=== PATIENT | male | born 1975 | race Caucasian/White ===

== ENCOUNTER 2017-03-01 13:55 | Emergency (ER) | payer MEDICAID, SELFPAY ==
[2017-03-01 14:16] VITALS: BP 145/97; PULSE 85; RESP 18; TEMP 36.6; O2SAT 96; BMI 21.7
--- NOTE | 2017-03-01 14:17 | PC.NURSE ---
pt requested to be seen in [facility] for slurred speech. When came back, I immediately went to room. Has family with him. Asked what brought them in. patient not speaking. Family reporting slurred speech and concerned for either a stroke or dehydration. States here to rule out stroke and have blood work. Explained [facility] and that stroke patients are typically seen in ER but that I was happy to see him and evaluate him but if concerns for stroke, ER is where I would send him. They left saying they were going to ER instead of waiting to be evaluated first here. Got up and walked out before I could even call report or assist w/ transfer to ER. Margo, [employer] was immediately notified as well as registration.
--- NOTE | 2017-03-01 14:41 | CT_ITS ---
CT HEAD/BRAIN WO CON Ordering Physician: Linda Breaux Patient Age: 41 years: Male HISTORY: ITS.REASON: SLURRED SPEECHweakness right side symptoms since since Wednesday TECHNIQUE: Routine Axial CT scanning through the head CT. Brain and bone windows performed and submitted to PACS. COMPARISON : None available FINDINGS No hemorrhage. No mass. No territorial infarct. No subdural collection. There is a 10 mm x 5 mm low-density area at the superior left basal ganglia left putamen . Fairly low-density and thus may be an older lucunar infarct.. Just superior to this is a vague low density at the damian radiata white matter tracts leading superiorly just lateral to the body of left lateral ventricle. These areas can reflect recent ischemia or involving infarct. (Axial image 25, 26, 27). Clinical correlation required. MR suggested to further evaluatepreferably with and without contrast particularly in view of history The ventricles appear normal. Posterior fossa is normal. CP angles clear. IACs unremarkable. Mastoid air cells are well-developed and clear. Middle ear clear. A mild mucosal thickening is seen at the ethmoid air cells bilaterally with trace mucosal thickening sphenoid sinus and top of maxillary sinuses. Critical result called to ER physician Dr. Muir on 03/01/2017 2;58 PM. IMPRESSION 1. More likely older lacunar infarct left basal ganglia/ at left putamen(10X 5 mm on axial slice 24) 2. However just superior to the left basal ganglia there is additional vague Low density extending to the damian radiata white matter tracts. Nonspecific but Could reflect a a recent or acute infarct.. 3. Warrants MR with & without contrast to further evaluate 4. No hemorrhage evident
[2017-03-01 14:46] LABS: Basophils % 0.3 % (0.1-2.0); Eosinophils # 0.2 K/mm3 (0.0-0.4); Eosinophils % 3.4 % (0.1-12.0); Hematocrit 46.4 % (42.0-52.0); Hemoglobin 15.6 g/dL (14.1-18.0); Lymphocytes # 1.4 K/mm3 (0.7-4.5); Lymphocytes % 20.3 K/mm3 (10-50); Mean Corpuscular HGB Conc 33.7 g/dL (31.8-35.4); Mean Corpuscular Hemoglobin 29.9 pg (27.0-31.2); Mean Corpuscular Volume 88.7 fl (80-94); Mean Platelet Volume 7.5 fl (7.4-10.4); Monocytes # 0.5 K/mm3 (0.1-1.0); Monocytes % 6.5 % (1.7-9.3); Neutrophils # 4.8 K/mm3 (1.8-7.8); Neutrophils % 69.5 % (37.0-80.0); Platelet Count 297 K/mm3 (142-424); Red Blood Count 5.23 M/mm3 (4.60-6.20); Red Cell Distribution Width 12.3 % (11.5-17.5); White Blood Count 6.9 K/mm3 (4.8-10.8)
--- NOTE | 2017-03-01 14:52 | HMH.EDGENADL ---
ED Disposition Clinical Impression: Ischemic stroke without coma Disposition: Xfer Critical Access Hosp Condition on Discharge: Fair Additional Instructions: Pt informed of the findings on his CT scan and discussion with stroke team at ....[facility] and [facility] evaluation Time of Disposition: 15:15 - Critical Care Critical Care Time: Yes Attestation: On 03/01/17, the high probability of a clinically significant, sudden or life threatening deterioration of the following system(s) required my full and direct attention, intervention and personal management. The time I documented below is in addition to time spent performing reported procedures but includes the following listed in this critical care notation. Vital system(s) involved:: Central Nervous System My critical care processes included: Assessment & monitoring of V/S, Initial and Re-exams, Data Review/Interpretation, Coordinating Care, Documentation Medical Decision Making - Medical Records Medical records reviewed: Yes: I reviewed the patient's medical records. Vital Signs: 03/01/17 14:16 03/01/17 17:37 03/01/17 18:05 Temperature 97.8 F 98.3 F 98.0 F Temperature Source Oral Oral Temporal Artery Scan Pulse Rate [Right Brachial] 85 72 Respiratory Rate 18 18 16 Blood Pressure 142/88 Blood Pressure [Right Arm] 145/97 140/88 Blood Pressure Mean [Right Arm] 113 105 Blood Pressure Source Automatic Cuff Blood Pressure Source [Right Arm] Automatic Cuff Automatic Cuff Blood Pressure Position Sitting Blood Pressure Position [Right Arm] Sitting Sitting 02 Sat by Pulse Oximetry 96 97 Oxygen Delivery Method Room Air Room Air Room Air - Lab Data Lab results reviewed: Yes: I reviewed the patient's lab results. Lab Results 03/01/17 14:26: WBC 6.9, RBC 5.23, Hgb 15.6, Hct 46.4, MCV 88.7, MCH 29.9, MCHC 33.7, RDW 12.3, Plt Count 297, MPV 7.5, Neut % (Auto) 69.5, Lymph % (Auto) 20.3, [place] % (Auto) 6.5, Eos % (Auto) 3.4, Baso % (Auto) 0.3, Neut # (Auto) 4.8, Lymph # (Auto) 1.4, [place] # (Auto) 0.5, Eos # (Auto) 0.2, Baso # (Auto) 0.0 03/01/17 14:26: Sodium 134 L, Potassium 3.7, Chloride 102, Carbon Dioxide 28, Anion Gap 7.7, BUN 15, Creatinine 1.11, Estimated Creat Clear 74, Estimated GFR 73, Est GFR ( Amer) 89, Glucose 108 H, Calcium 9.0, Total Bilirubin 0.4, AST 31, ALT 57, Alkaline Phosphatase 85, Total Protein 7.8, Albumin 4.2, Globulin 3.6 H, Albumin/Globulin Ratio 1.2 Result diagrams: 03/01/17 14:26 03/01/17 14:26 Orders (Tests/Meds): ED MEDICATIONS Generic Name Dose Route Start Last Admin Trade Name Freq PRN Reason Stop Dose Admin Sodium Chloride 10 ml 03/01/17 14:36 Saline Flush 10ml Syringe IV 03/31/17 14:35 NEEDED PRN Maintain IV Site ORDERS Category Date Time Status CBC w/Auto Diff [Complete Blood Count Auto Diff] Stat Lab 03/01/17 18:01 Ordered Comprehensive Metabolic Panel Stat Lab 03/01/17 18:02 Ordered PTT [Activated Partial Thrombo Time] Stat Lab 03/01/17 18:02 Ordered - CT Data CT Scan: Head Time Received: 16:[address] Reviewed: Yes: I discussed the CT results w/the radiologist Findings Narrative: low density areas in left basal ganglia with some ? stranding to the cortex - Naveed Inquiry Pt receiving controlled substance: No Naveed was queried for this patient: No General Adult HPI - General Chief complaint: Weakness Stated complaint: SLURRED SPEECH Mode of Arrival: Ambulatory Limitations: No Limitations Description of Symptoms (Recalled from ER Triage Doc. by RN): SLURRED SPEECH AND DIFFICULTY INTERACTING - History of Present Illness HPI narrative: Pt comes to the ED with some slurred speech since Wednesdaynight. Wednesday got up and felt the same. Pt is a hairdresser and stands alot. He also smokes 1 ppd and drinks [place] maybe twice a week. He has a historyofHTN and takes medicine for that. He denies any history of IV drug use ....He is Ay[place].
--- NOTE | 2017-03-01 15:00 | ED_ITS ---
ED Disposition Clinical Impression: Ischemic stroke without coma Disposition: Xfer Critical Access Hosp Condition on Discharge: Fair Additional Instructions: Pt informed of the findings on his CT scan and discussion with stroke team at ....[facility] and further evaluation Time of Disposition: 15:15 - Critical Care Critical Care Time: Yes Attestation: On 03/01/17, the high probability of a clinically significant, sudden or life threatening deterioration of the following system(s) required my full and direct attention, intervention and personal management. The time I documented below is in addition to time spent performing reported procedures but includes the following listed in this critical care notation. Vital system(s) involved:: Central Nervous System My critical care processes included: Assessment & monitoring of V/S, Initial and Re-exams, Data Review/Interpretation, Coordinating Care, Documentation Medical Decision Making - Medical Records Medical records reviewed: Yes: I reviewed the patient's medical records. Vital Signs: 03/01/17 14:16 03/01/17 17:37 03/01/17 18:05 Temperature 97.8 F 98.3 F 98.0 F Temperature Source Oral Oral Temporal Artery Scan Pulse Rate [Right Brachial] 85 72 Respiratory Rate 18 18 16 Blood Pressure 142/88 Blood Pressure [Right Arm] 145/97 140/88 Blood Pressure Mean [Right Arm] 113 105 Blood Pressure Source Automatic Cuff Blood Pressure Source [Right Arm] Automatic Cuff Automatic Cuff Blood Pressure Position Sitting Blood Pressure Position [Right Arm] Sitting Sitting 02 Sat by Pulse Oximetry 96 97 Oxygen Delivery Method Room Air Room Air Room Air - Lab Data Lab results reviewed: Yes: I reviewed the patient's lab results. Lab Results 03/01/17 14:26: WBC 6.9, RBC 5.23, Hgb 15.6, Hct 46.4, MCV 88.7, MCH 29.9, MCHC 33.7, RDW 12.3, Plt Count 297, MPV 7.5, Neut % (Auto) 69.5, Lymph % (Auto) 20.3 , [place] % (Auto) 6.5, Eos % (Auto) 3.4, Baso % (Auto) 0.3, Neut # (Auto) 4.8, Lymph # (Auto) 1.4, [place] # (Auto) 0.5, Eos # (Auto) 0.2, Baso # (Auto) 0.0 03/01/17 14:26: Sodium 134 L, Potassium 3.7, Chloride 102, Carbon Dioxide 28, Anion Gap 7.7, BUN 15, Creatinine 1.11, Estimated Creat Clear 74, Estimated GFR 73, Est GFR ( Amer) 89, Glucose 108 H, Calcium 9.0, Total Bilirubin 0.4, AST 31, ALT 57, Alkaline Phosphatase 85, Total Protein 7.8, Albumin 4.2, Globulin 3.6 H, Albumin/Globulin Ratio 1.2 Result diagrams: 03/01/17 14:26 03/01/17 14:26 Orders (Tests/Meds): ED MEDICATIONS Generic Name Dose Route Start Last Admin Trade Name Freq PRN Reason Stop Dose Admin Sodium Chloride 10 ml 03/01/17 14:36 Saline Flush 10ml Syringe IV 03/31/17 14:35 NEEDED PRN Maintain IV Site ORDERS Category Date Time Status CBC w/Auto Diff [Complete Blood Count Auto Diff] Stat Lab 03/01/17 18:01 Ordered Comprehensive Metabolic Panel Stat Lab 03/01/17 18:02 Ordered PTT [Activated Partial Thrombo Time] Stat Lab 03/01/17 18:02 Ordered - CT Data CT Scan: Head Time Received: 16:[address] Reviewed: Yes: I discussed the CT results w/the radiologist Findings Narrative: low density areas in left basal ganglia with some ? stranding to the cortex - Naveed Inquiry Pt receiving controlled substance: No Naveed was queried for this patient: No
[2017-03-01 15:01] LABS: Alanine Aminotransferase 57 U/L (12-78); Albumin Level 4.2 gm/dL (3.4-5.0); Albumin/Globulin Ratio 1.2 (1.1-1.8); Alkaline Phosphatase 85 U/L (46-116); Anion Gap 7.7 mEq/L (5-15); Aspartate Amino Transferase 31 U/L (15-37); Bilirubin,Total 0.4 mg/dL (0.2-1.0); Blood Urea Nitrogen 15 mg/dL (7-18); Carbon Dioxide 28 mmol/L (21.0-32.0); Chloride 102 mmol/L (98-107); Creatinine Clearance Estimated 74 mL/min (0-300); Creatinine,Serum 1.11 mg/dL (0.70-1.30); Estimated Glomerular Filt Rate 73 ml/min (>60); GFR (African American) 89 ML/MIN (>60); Globulin 3.6 gm/dl (1.3-3.2); Glucose 108 mg/dL (74-106); Potassium 3.7 mmoL/L (3.5-5.1); Sodium 134 mmol/L (136-145); Total Protein,Serum 7.8 gm/dL (6.4-8.2)
--- NOTE | 2017-03-01 15:10 | PC.NURSE ---
call placed to [facility] for oncall stroke-rell hilton
--- NOTE | 2017-03-01 15:21 | PC.NURSE ---
arranged for mri scan this date at this hospital due to findings on ct at suggestion of dr hilton when she was on the phone. pt remains stable. is agreeable.
--- NOTE | 2017-03-01 16:47 | MR_ITS ---
MR head/brain wo/w con Ordering Physician: Leyla Yang MD Patient Age: 41 years: Male HISTORY: ITS.REASON: R/O CVA TECHNIQUE: Multiplanar FLAIR, T1, T2 weighted images along with axial diffusion/ADC imaging performed on 1.5 T. Siemens, MRI. No IV contrast utilized. None ordered. COMPARISON :CT head from today FINDINGS Diffusion images show that the low-density area seen on CT the left basal ganglia reflects a acute/recent infarct. The noted lacunar infarct at the posterior left basal ganglia is demonstrates high signal on MR diffusion images and low signal on ADC images- reflecting a area of acute/recent ischemia & infarct.. This Abnormal diffusion signal reflecting infarct/ischemia begins just along the posterior limb of the left internal capsule posterior basal ganglia lacunar appearing infarct measuring 10 mm x 6 mm at axial slice 15. Superior to this there is less well-defined abnormal diffusion signal, which extends for just nearly 2.5 cm height, 15 mm AP & 9 mm transverse. This seen extending superiorly from the left basal ganglia upward through the damian radiata deep white matter tracts, involving deep white matter overlying body left lateral ventricle, left periventricular region..-This likely reflects a small vessel ischemic event.. (Likely a lateral left ventricular striate artery) We do not see a territorial infarct otherwise. No hemorrhage evident on the blood sensitive sequence nor on the prior CT From today. Understand the onset of symptoms was on Wednesday now 2 days ago, which is beyond the time window for thrombolytic therapy.. Disc into this region is a smaller 3 mm focus seen on FLAIR images only but not diffusion. This may reflect a previous small vessel deep white matter ischemic focus. No enhancement is seen here or elsewhere on the postcontrast images no enhancing lesions. No luxury perfusion evident No subdural collection. The posterior fossa and brainstem appear normal. Cranial nerve VII and VIII appears satisfactory CP angles clear. Right cerebral hemisphere normal.Ventricles normal size and basal cisterns clear. Orbits appear satisfactory bilateral. Mild Deviation nasal septum. Generous engorgement left nasal turbinates more so than right. . Mild mucosal thickening at the ethmoid air cells and sphenoid sinuses. Mild mucosal thickening posterior left maxillary sinus. IMPRESSION: 1. Acute/recent lacunar infarct at posterior left basal ganglia, which then extends superiorly along left periventricular deep white matter. (damian radiata) 2. Findings reflect small vessel infarct with findings compatible with history of onset of symptoms 2 days ago. 3. No hemorrhage . No abnormal areas of enhancement.. No luxury perfusion associated
[2017-03-01 17:37] VITALS: BP 140/88; PULSE 72; RESP 18; TEMP 36.8; O2SAT 97
--- NOTE | 2017-03-01 17:42 | PC.NURSE ---
call from dr calle.
--- NOTE | 2017-03-01 17:53 | PC.NURSE ---
[facility] placed to [facility] dr hilton
[2017-03-01 18:05] VITALS: BP 142/88; RESP 16; TEMP 36.7; O2SAT 98
[2017-03-01 18:15] LABS: Activated Partial Thrombo Time 28.3 seconds (23.6-34.0)
--- NOTE | 2017-03-01 18:35 | PC.NURSE ---
REPORT TO ENPTALI AT ER
== END 2017-03-01 18:35 | disposition critical access hospital (66) ==
LOC: UTC 14:11 → ER 14:32 → UTC 14:32 → ER 14:33
PROVIDERS: Emergency Provider General Practice
DX: I63.9 Cerebral infarction, unspecified (principal); R47.81 Slurred speech; I10 Essential (primary) hypertension; F17.210 Nicotine dependence, cigarettes, uncomplicated; Z79.899 Other long term (current) drug therapy
CPT/HCPCS: 70450; 70553; 80053; 85025; 85730; 99203; 99281; 99283

== ENCOUNTER → 2017-03-11 10:40 | Outpatient (CLI) | payer MEDICAID, SELFPAY ==
[2017-03-11 11:55] LABS: Alanine Aminotransferase 116 U/L (12-78); Albumin Level 4.3 gm/dL (3.4-5.0); Albumin/Globulin Ratio 1.4 (1.1-1.8); Alkaline Phosphatase 102 U/L (46-116); Aspartate Amino Transferase 59 U/L (15-37); Bilirubin,Total 0.7 mg/dL (0.2-1.0); Blood Urea Nitrogen 15 mg/dL (7-18); Calcium 9.2 mg/dL (8.5-10.1); Carbon Dioxide 30 mmol/L (21.0-32.0); Chloride 101 mmol/L (98-107); Chol/HDL Ratio 2.4 (1-3.5); Cholesterol 108 mg/dL (140-200); Creatinine,Serum 1.01 mg/dL (0.70-1.30); Estimated Glomerular Filt Rate 82 ml/min (>60); GFR (African American) 99 ML/MIN (>60); Glucose 113 mg/dL (74-106); HDL Cholesterol 45 mg/dL (27-67); LDL Cholesterol 43 mg/dL (0-130); Sodium 135 mmol/L (136-145); Total Protein,Serum 7.3 gm/dL (6.4-8.2); Triglycerides 100 mg/dL (30-200); VLDL Cholesterol 20 mg/dL (0-40)
[2017-03-11 11:59] LABS: Hemoglobin A1C 5.4 % (0.0-7.0)
== END ==
PROVIDERS: PCP Family Medicine; Visit Provider Family Medicine
DX: I63.9 Cerebral infarction, unspecified (principal); I10 Essential (primary) hypertension
CPT/HCPCS: 36415; 80053; 80061; 83036

== ENCOUNTER 2017-03-15 14:00 | Outpatient (RCR) | payer MEDICAID, SELFPAY | END 2017-03-15 14:01 | disposition home or self-care (01) | LOC: OT 14:00 | DX: I63.9 Cerebral infarction, unspecified (principal) | CPT/HCPCS: 92610; 97110; 97165 ==

== ENCOUNTER → 2021-04-15 15:50 | Outpatient (CLI) | payer MEDICAID, SELFPAY ==
[2021-04-15 16:30] LABS: Basophils % 0.5 % (0.1-2.0); Eosinophils # 0.4 K/mm3 (0.0-0.4); Eosinophils % 7.4 % (0.1-12.0); Hematocrit 43.7 % (42.0-52.0); Hemoglobin 14.5 g/dL (14.1-18.0); Lymphocytes # 1.4 K/mm3 (0.7-4.5); Lymphocytes % 24.8 % (10-50); Mean Corpuscular HGB Conc 33.2 g/dL (31.8-35.4); Mean Corpuscular Hemoglobin 28.6 pg (27.0-31.2); Mean Platelet Volume 8.2 fl (7.4-10.4); Monocytes # 0.4 K/mm3 (0.1-1.0); Monocytes % 7.3 % (1.7-9.3); Neutrophils # 3.5 K/mm3 (1.8-7.8); Platelet Count 378 K/mm3 (142-424); Red Blood Count 5.08 M/mm3 (4.60-6.20); Red Cell Distribution Width 12.9 % (11.5-17.5); White Blood Count 5.8 K/mm3 (4.8-10.8)
== END ==
PROVIDERS: Visit Provider Family Medicine
DX: R79.9 Abnormal finding of blood chemistry, unspecified (principal)
CPT/HCPCS: 36415; 85025

== ENCOUNTER 2023-07-22 10:23 | Outpatient (CLI) | payer OTHER, SELFPAY ==
--- NOTE | 2023-07-22 10:31 | US_ITS ---
FINAL REPORT TECHNIQUE: Ultrasound images of the testicles were obtained bilaterally. Color Doppler images were obtained. CLINICAL HISTORY: .LT TEST PAIN X SEV MOS FINDINGS: There is asymmetry in the size of the testicles measuring up to 5.0 cm on the left and up to 3.9 cm on the right. The testicles demonstrate normal echogenicity. Arterial flow is identified bilaterally. No intratesticular masses are identified. Mild increased vascularity is seen in the left epididymis which may be related to mild epididymitis. IMPRESSION: No evidence of testicular mass or torsion. Mild increased vascularity in the left epididymis may be related to mild epididymitis. Reviewed, Interpreted and Dictated by Arash Bowman MD Transcribed by Arleen Aguirre Authenticated and [facility]
== END 2023-07-22 23:59 | disposition home or self-care (01) ==
LOC: RAD 10:24
PROVIDERS: PCP Physician Assistant; Visit Provider Physician Assistant
DX: N50.812 Left testicular pain (principal)
CPT/HCPCS: 76870